=== PATIENT | male | born 1950 | race African-American/Black ===

== ENCOUNTER 2017-07-31 00:11 | Emergency (ER) | payer MEDICARE ==
[~2017-07-31] VITALS: Ht 177.8 cm; Wt 59.0 kg
[2017-07-31 07:57] VITALS: BP 137/77
== END 2017-07-31 08:40 | disposition home or self-care (01) ==
LOC: ER 00:50
DX: M25.551 Pain in right hip (principal); M19.90 Unspecified osteoarthritis, unspecified site; F17.200 Nicotine dependence, unspecified, uncomplicated; F12.10 Cannabis abuse, uncomplicated; W01.0XXA Fall on same level from slipping, tripping and stumbling without subsequent striking against object, initial encounter; Y93.E1 Activity, personal bathing and showering; Y92.89 Other specified places as the place of occurrence of the external cause; Y99.8 Other external cause status
CPT/HCPCS: 73502; 99284